=== PATIENT | female | born 1995 | race African-American/Black ===

== ENCOUNTER 2018-07-24 07:22 | Emergency (ER) | payer SELFPAY ==
[2018-07-24 07:38] VITALS: BP 116/58
--- NOTE | 2018-07-24 08:22 | UC ---
Complaint Female HPI - HPI Summary HPI Summary: 22 yo who c/o recurrent vaginal discharge. She was treated 2 weeks ago for chlamydia and had intercourse with same partner. Denies vaginal itching, chills , fever. States she does not want to have full STD panel as she had blood testing several weeks ago and it was negative. - History Of Current Complaint Chief Complaint: UCSTDScreening Stated Complaint: PERSONAL Time Seen by Provider: 07/24/18 07:44 Hx Obtained From: Patient Hx Last Menstrual Period: 06/18/18 ?: No Onset/Duration: Sudden Onset, Lasting Days Timing: Constant Severity Initially: Mild Severity Currently: Mild Pain Intensity: 0 Character: Not Applicable Aggravating Factor(s): Nothing Alleviating Factor(s): Nothing Associated Signs And Symptoms: Positive: Vaginal Discharge - Risk Factors Ectopic Risk Factor: Negative Ovarian Torsion Risk Factor: Negative - Allergies/Home Medications Allergies/Adverse Reactions: Allergies Allergy/AdvReac Type Severity Reaction Status Date / Time No Known Allergies Allergy Verified 07/24/18 07:35 Home Medications: Home Medications NK [No Home Medications Reported] 07/24/18 [History Confirmed 07/24/18] PMH/Surg Hx/FS Hx/Imm Hx Previously Healthy: Yes - Surgical History Surgical History: None - Family History Known Family History: Positive: None - Social History Alcohol Use: None Substance Use Type: None Smoking Status (MU): Never Smoked Tobacco Review of Systems All Other Systems Reviewed And Are Negative: Yes Genitourinary: Positive: Vaginal/Penile Discharge Physical Exam Triage Information Reviewed: Yes Appearance: Well-Appearing, Well-Nourished, Obese Vital Signs: Initial Vital Signs Temp 98.6 F 07/24/18 07:33 Pulse 70 07/24/18 07:33 Resp 18 07/24/18 07:33 BP 116/58 07/24/18 07:33 Pulse Ox 100 07/24/18 07:33 Vital Signs Reviewed: Yes Eyes: Positive: Conjunctiva Clear ENT: Positive: Hearing grossly normal, Pharynx normal, TMs normal, Uvula midline Neck: Positive: Supple, Nontender, No Lymphadenopathy Respiratory: Positive: Chest non-tender, Lungs clear, Normal breath sounds, No respiratory distress Cardiovascular: Positive: RRR, No Murmur, Pulses Normal, Brisk Capillary Refill Abdomen Description: Positive: Nontender Pelvic Exam: Positive: External Exam Normal, No Cerv. Motion Tender, No Masses, Discharge Musculoskeletal: Positive: Strength Intact, ROM Intact Complaint Female Dx - Course Course Of Treatment: Patient presents with vaginitis, possible contact with chlamydia, azithromycin 1g given at , follow up on vaginal swab results for gc /chl, cristina and BV. Abstain from intercourse for a week. f/u with PCP in 1-2 weeks. Safe sex practices discussed with patient - Differential Dx/Diagnosis Provider Diagnoses: Exposure to STD. vaginosis Discharge - Sign-Out/Discharge Documenting (check all that apply): Patient Departure All imaging exams completed and their final reports reviewed: No Studies - Discharge Plan Condition: Stable Disposition: HOME Referrals: No Primary Care Phys,NOPCP [Primary Care Provider] - [facility] [place]Outside] - Billing Disposition and Condition Condition: STABLE Disposition: Home
[2018-07-24] MEDS ORDERED: Azithromycin TAB* 250 MG PO ONE (08:30)
--- NOTE | 2018-07-26 07:41 | UC ---
- Progress Note Progress Note: patient positive gardnerella vaginalis, prescription of metrogel vaginal sent to pharmacy, please call patient for results and to retrieve prescription Discharge - Sign-Out/Discharge Documenting (check all that apply): Post-Discharge Follow Up All imaging exams completed and their final reports reviewed: No Studies - Discharge Plan Condition: Stable Disposition: HOME Patient Education Materials: Azithromycin (By mouth), Sexually Transmitted Diseases (ED), Female Condom Use (ED) Referrals: [facility] [place] [facility] [Outside] No Primary Care Phys,NOPCP [Primary Care Provider] - - Billing Disposition and Condition Condition: STABLE Disposition: Home
--- NOTE | 2018-07-27 15:48 | UC ---
- Progress Note Progress Note: Pt called - metronidazole gel > $100 sent oral Flagyl to [facility] $8.40 with good RX Pt called and accepted sent Rx Ljj 07/27/2018 Discharge - Sign-Out/Discharge Documenting (check all that apply): Post-Discharge Follow Up All imaging exams completed and their final reports reviewed: No Studies - Discharge Plan Condition: Stable Disposition: HOME Prescriptions: metroNIDAZOLE [Flagyl] 500 mg PO BID #14 tablet metroNIDAZOLE VAGINAL 0.75%* 1 applic VAGINAL BEDTIME 5 Days #1 tube Patient Education Materials: Azithromycin (By mouth), Sexually Transmitted Diseases (ED), Female Condom Use (ED) Referrals: [facility] [place] [facility] [Outside] No Primary Care Phys,NOPCP [Primary Care Provider] - - Billing Disposition and Condition Condition: STABLE Disposition: Home
== END 2018-07-24 08:42 | disposition home or self-care (01) ==
LOC: UCCORT 07:22
DX: N76.0 Acute vaginitis (principal); Z20.2 Contact with and (suspected) exposure to infections with a predominantly sexual mode of transmission
CPT/HCPCS: 84702; 87480; 87491; 87510; 87591; 99212; A9270-GY; G0463

== ENCOUNTER 2019-08-08 16:04 | Emergency (ER) | payer OTHER ==
[2019-08-08 16:50] VITALS: BP 102/63
== END 2019-08-08 17:33 | disposition left against medical advice (07) ==
LOC: UCCORT 16:07
DX: Z53.21 Procedure and treatment not carried out due to patient leaving prior to being seen by health care provider (principal)

== ENCOUNTER 2019-08-09 16:19 | Emergency (ER) | payer OTHER ==
--- NOTE | 2019-08-09 16:33 | UC ---
Complaint Female HPI - HPI Summary HPI Summary: 23 yo female presents with vaginal discharge. She tells me that for the last week or so she has noticed some vaginal white discharge and occasional odor. She has had BV in the past and this feels the same. She has been sexually active , but has had the same partner for the last 2 months. Last had STD testing 1 month ago and denies concerns for this today. Denies fever, abdominal pain, n/v , dysuria, flank pain. LMP was 1 week ago - History Of Current Complaint Stated Complaint: PERSONAL Time Seen by Provider: 08/09/19 16:31 Hx Obtained From: Patient Hx Last Menstrual Period: 07/26/19 Onset/Duration: Gradual Onset Timing: Constant Severity Initially: Mild Severity Currently: Mild Pain Intensity: 3 Pain Scale Used: 0-10 Numeric - Allergies/Home Medications Allergies/Adverse Reactions: Allergies Allergy/AdvReac Type Severity Reaction Status Date / Time No Known Allergies Allergy Verified 08/09/19 16:35 PMH/Surg Hx/FS Hx/Imm Hx - Additional Past Medical History Additional PMH: HEadaches - Surgical History Surgical History: None - Family History Known Family History: Positive: None - Social History Occupation: Student Lives: Dormitory/Roommates Alcohol Use: Occasionally Substance Use Type: None Smoking Status (MU): Never Smoked Tobacco Review of Systems All Other Systems Reviewed And Are Negative: No Constitutional: Positive: Negative Skin: Positive: Negative Respiratory: Positive: Negative Cardiovascular: Positive: Negative Gastrointestinal: Positive: Negative Genitourinary: Positive: Vaginal/Penile Discharge Neurological: Positive: Negative Psychological: Positive: Negative Physical Exam - Summary Physical Exam Summary: GENERAL: NAD. WDWN. No pain distress. SKIN: No rashes, sores, lesions, or open wounds. NECK: Supple. Nontender. No lymphadenopathy. CHEST: CTAB. No r/r/w. No accessory muscle use. Breathing comfortably and in no distress. CV: RRR. Pulses intact. Cap refill <2seconds ABDOMEN: Soft. NTTP. No distention or guarding. No CVA tenderness. Bowel sounds present NEURO: Alert. PSYCH: Age appropriate behavior. Triage Information Reviewed: Yes Vital Signs: Vital Signs: Temp Pulse Resp BP Pulse Ox 98.8 F 80 16 132/77 100 08/09/19 16:35 08/09/19 16:35 08/09/19 16:35 08/09/19 16:35 08/09/19 16:35 Laboratory Tests 08/09/19 08/09/19 17:11 17:13 POC Urine Color Yellow POC Urine Clarity Slightly cloudy POC Urine pH 6.5 POC Ur Specif [place] >= 1.030 POC Urine Protein Trace A POC Ur Glucose (UA) Negative POC Urine Ketones Negative POC Urine Blood Negative POC Urine Nitrite Negative POC Urine Bilirubin Negative POC Urine Urobilinogen 0.2 POC U Leukocyte Esteras Negative POC Ur Test Negative Vital Signs Reviewed: Yes Pelvic Exam: Positive: External Exam Normal, Discharge - moderate milky white, Other - Exam assisted by Marcy Hu RN. Negative: Active Bleeding, Blood, Lesions , Mass, Ulcers Complaint Female Dx - Course Course Of Treatment: Suspect BV vs yeast. Will treat for BV. Cultures obtained for affirm. - Differential Dx/Diagnosis Provider Diagnosis: Bacterial vaginosis Discharge ED - Sign-Out/Discharge Documenting (check all that apply): Patient Departure All imaging exams completed and their final reports reviewed: No Studies - Discharge Plan Condition: Stable Disposition: HOME Prescriptions: metroNIDAZOLE [Flagyl] 500 mg PO BID #14 tablet Patient Education Materials: Bacterial Vaginosis (ED) Referrals: Priya Bruce [Primary Care Provider] - Additional Instructions: If you develop a fever, shortness of breath, chest pain, new or worsening symptoms - please call your PCP or go to the ED immediately. Your exam today seemed most consistent with BV. --- We have sent a culture to the lab to test for this and yeast and will call you with any changes to your treatment - Billing Disposition and Condition Condition: STABLE Disposition: Home
[2019-08-09 16:38] VITALS: BP 132/77
== END 2019-08-09 17:34 | disposition home or self-care (01) ==
LOC: UCCORT 16:19
DX: N76.0 Acute vaginitis (principal)
CPT/HCPCS: 81003; 84702; 87480; 87510; 99212; G0463